=== PATIENT | male | born 2000 | race Two or more races ===

== ENCOUNTER 2018-05-20 01:10 | Emergency (ER) | payer OTHER ==
[~2018-05-20] VITALS: Ht 170.2 cm; Wt 59.0 kg
[2018-05-20 01:15] VITALS: BP 125/71
[2018-05-20] MEDS ORDERED: DEXAMETHASONE 4 MG TABLET PO ONE (02:30)
--- NOTE | 2018-05-20 02:42 | PHYS DOC ---
Past Medical History Past Medical History: No Pertinent History Past Surgical History: No Surgical History Smoking: Cigarettes Alcohol Use: None Drug Use: Marijuana Adult General Chief Complaint Chief Complaint: SORE THROAT HPI HPI 18-year-old male presents with report of sore throat and chest discomfort which is been ongoing since he finished work today. Denies known trauma. Patient also reports left-sided neck pain. Denies fever or chills. Reports his been taking ibuprofen without relief. Denies leg swelling or calf tenderness. Cardiac risk factors for smoking. Denies history of PE/DVT. Denies family history of PE/DVT. Review of Systems Review of Systems Constitutional: Denies fever or chills [] Eyes: Denies change in visual acuity, redness, or eye pain [] HENT: Denies nasal congestion; reports sore throat [] Respiratory: Denies cough or shortness of breath [] Cardiovascular: Reports chest pain GI: Denies abdominal pain, nausea, vomiting, or diarrhea [] : Denies dysuria or hematuria [] Musculoskeletal: Denies back pain or joint pain [] Integument: Denies rash or skin lesions [] Neurologic: Denies headache, focal weakness or sensory changes [] Complete systems were reviewed and found to be within normal limits, except as documented in this note. Current Medications Current Medications Current Medications Medications (Trade) Dose Ordered Sig/Alejandra Start Time Stop Time Status Last Admin Dose Admin Dexamethasone (Decadron) 10 mg 1X ONCE 05/20/18 02:30 05/20/18 02:31 DC 05/20/18 02:25 10 MG Allergies Allergies Allergies Coded Allergies Type Severity Reaction Last Updated Verified No Known Drug Allergies 12/10/14 No Physical Exam Physical Exam Constitutional: Well developed, well nourished, no acute distress, non-toxic appearance. [] HENT: Normocephalic, atraumatic, bilateral TMs normal, oropharynx moist, no oral exudates, nose normal. [] Eyes: PERRL, EOMI, conjunctiva normal, no discharge. [] Neck: Normal range of motion, no midline tenderness, left paraspinal tenderness noted, supple Cardiovascular: Heart rate regular rhythm, no murmur [] Lungs & Thorax: Bilateral breath sounds clear to auscultation [] Abdomen: Soft, no tenderness Skin: Warm, dry, no erythema, no rash. [] Back: No tenderness, no CVA tenderness. [] Extremities: No tenderness, ROM intact, no edema. [] Neurologic: Alert and oriented X 3, normal motor function, normal sensory function, no focal deficits noted. [] Psychologic: Affect normal, judgement normal, mood normal. [] Current Patient Data Vital Signs Vital Signs Date Time Temp Pulse Resp B/P (MAP) Pulse Ox O2 Delivery O2 Flow Rate FiO2 05/20/18 01:15 97.8 79 20 125/71 (89) 99 Room Air 97.8 EKG EKG @0212 NSR at 66bpm, incomplete RBBB, NO ST elevation Radiology/Procedures Radiology/Procedures 2 view CXR (Preliminary interpretation by ED physician): NO acute process. Course & Med Decision Making Course & Med Decision Making Pertinent Imaging studies reviewed. (See chart for details) Patient with low risk for cardiac disease presents with report of chest discomfort with radiation up to his throat and left paraspinal neck pain. Patient reports worse after working. Denies leg swelling or calf tenderness. PERC negative. HEART score 1 without troponin interpretation. Given age risk of CAD extremely low. EKG stable. CXR without acute process. Symptomatic treatment provided. Rapid strep negative. Patient stable for discharge with outpatient follow-up with PCP. Discussed findings and plan with patient and family, who acknowledge understanding and agreement. Víctor Disclaimer Víctor Disclaimer This electronic medical record was generated, in whole or in part, using a voice recognition dictation system. Departure Departure Impression: Primary Impression: Atypical chest pain Additional Impression: Sore throat Disposition: 01 HOME, SELF-CARE Condition: STABLE Referrals: NO PCP (PCP) Patient Instructions: Chest Pain (Nonspecific), [id number], Sore Throat, Easy -to-Read Scripts Famotidine (PEPCID) 20 Mg Tablet 20 MG PO BID, #14 TAB Prov: SALOMÓN NOBLES DO 05/20/18 Problem Qualifiers SALOMÓN NOBLES DO May 20, 2018 02:42
[2018-05-20] MEDS ORDERED: FAMO-63 PO (02:43)
--- NOTE | 2018-05-20 05:04 | EKG ---
[facility] [address] [place] [id number] Test Date: 2018-05-20 Test Time: 02:12:03 Pat Name: DAVID MORATAYA Department: Room: Gender: M Practice Lead: : 2000 Requested By: SALOMÓN NOBLES Order Number: [id number] Reading MD: Measurements Intervals Hector Rate: 66 P: 34 NC: 162 QRS: 47 QRSD: 100 T: 33 QT: 368 QTc: 387 Interpretive Statements SINUS RHYTHM INCOMPLETE RIGHT BUNDLE BRANCH BLOCK NO SPECIFIC ECG ABNORMALITIES RI6.01 No previous ECG available for comparison
--- NOTE | 2018-05-20 08:12 | RAD ---
CHEST PA LATERAL History: Chest pain Comparison: 03/07/2015 Findings: 2 views of the chest are submitted. There is no infiltrate, pneumothorax, or effusion. The cardiac silhouette is within normal limits in size. The trachea is in the midline. No acute osseous abnormality is identified. Impression: 1. There is no evidence of acute cardiopulmonary disease. Electronically signed by: Cheo Oconnell MD (05/20/2018 8:08 AM) [id number]
== END 2018-05-20 02:52 | disposition home or self-care (01) ==
LOC: ER 01:10
DX: J02.9 Acute pharyngitis, unspecified (principal); R07.89 Other chest pain; F17.210 Nicotine dependence, cigarettes, uncomplicated; M54.2 Cervicalgia
CPT/HCPCS: 71046; 87070; 87880; 93005; 99284; J8540